=== PATIENT | female | born 1975 | race African-American/Black ===

== ENCOUNTER 2022-01-20 17:12 | Emergency (ER) | payer MEDICAID ==
[~2022-01-20] VITALS: Ht 172.7 cm; Wt 74.8 kg
[2022-01-20] MEDS ORDERED: IBUP-1955 PO (18:18)
[2022-01-20 18:40] VITALS: BP 115/69
--- NOTE | 2022-01-20 18:40 | NUR ---
Patient discharged to home in stable condition. Written and verbal after care instructions given. Patient verbalizes understanding of instructions. Stressed follow up or return to ER for worsening s/s.
== END 2022-01-20 18:41 | disposition home or self-care (01) ==
LOC: ER 17:23
DX: S89.91XA Unspecified injury of right lower leg, initial encounter (principal); W18.40XA Slipping, tripping and stumbling without falling, unspecified, initial encounter; Y93.23 Activity, snow (alpine) (downhill) skiing, snowboarding, sledding, tobogganing and snow tubing; Y92.838 Other recreation area as the place of occurrence of the external cause; Z88.0 Allergy status to penicillin
CPT/HCPCS: A4663

== ENCOUNTER 2024-03-04 16:38 | Emergency (ER) | payer MEDICAID, MEDICARE ==
[~2024-03-04] VITALS: Ht 167.6 cm; Wt 72.6 kg
[~2024-03-04 16:38] MED LIST: IBUP-1955 PO
[2024-03-04] MEDS: AZITHROMYCIN 250 MG TABLET PO ONE (17:15)
[2024-03-04] MEDS: CEFTRIAXONE 1 G in IV DEXTROSE 5% 50 ML IV ONE (17:15)
[2024-03-04] MEDS: IV NORMAL SALINE 1000 ML BAG IV ONE (17:38)
[2024-03-04] MEDS ORDERED: DEXAMETHASONE SOD PHOSPHATE 10 MG INJ ONE (17:39)
[2024-03-04] MEDS: DEXAMETHASONE SOD PHOSPHATE 4 MG INJ IV ONE (17:46)
[2024-03-04 17:51] LABS: BASOPHILS # (AUTO) 0.1 K/UL (0.0-0.2); BASOPHILS % (AUTO) 0.6 % (0.0-2.0); EOSINOPHILS # (AUTO) 0.1 K/uL (0.0-0.7); EOSINOPHILS % (AUTO) 0.6 % (0.0-7.0); HEMATOCRIT 34.7 % (31.2-41.9); HEMOGLOBIN 11.3 g/dL (10.9-14.3); LYMPHOCYTES # (AUTO) 3.2 K/uL (0.8-4.8); LYMPHOCYTES % (AUTO) 24.9 % (20.5-51.5); MEAN CORPUSCULAR HEMOGLOBIN 24.2 uug (24.7-32.8); MEAN CORPUSCULAR HGB CONC 33 g/dL (32.3-35.6); MEAN CORPUSCULAR VOLUME 74.2 fL (75.5-95.3); MONOCYTES # (AUTO) 1.1 K/uL (0.1-1.30); MONOCYTES % (AUTO) 8.5 % (0.0-11.0); NEUTROPHILS # (AUTO) 8.3 K/uL (1.8-8.9); NEUTROPHILS % (AUTO) 65.4 % (38.5-71.5); PLATELET COUNT (AUTO) 722 K/uL (179-408); RED BLOOD CELL COUNT(AUTO) 4.67 MIL/uL (3.63-4.92); WHITE BLOOD COUNT (AUTO) 12.7 K/uL (3.8-11.8)
[2024-03-04 17:55] LABS: DIFFERENTIAL COMMENT 1
[2024-03-04] MEDS ORDERED: CEFTRIAXONE /D5W 50ML IVPB **ER PYXIS IV ONE (18:15)
[2024-03-04] MEDS ORDERED: AZITHROMYCIN 250 MG TABLET ONE (18:15)
[2024-03-04 18:20] LABS: ALANINE AMINOTRANSFERASE 21 U/L (14-59); ALBUMIN 3.3 g/dL (3.4-5.0); ALKALINE PHOSPHATASE 82 U/L (50-136); ASPARTATE AMINOTRANSFERASE 26 U/L (15-37); BILIRUBIN,DIRECT < 0.1 mg/dL (0.0-0.2); BILIRUBIN,TOTAL 0.4 mg/dL (0.2-1.0); CALCIUM 9.3 mg/dL (8.5-10.1); CARBON DIOXIDE 26 mmol/L (21-32); CHLORIDE 100 mmol/L (98-107); CREATININE 0.9 mg/dL (0.6-1.3); GLUCOSE 91 mg/dL (74-106); NT-PRO BNP 57 pg/mL (0-125); POTASSIUM 4.7 mmol/L (3.5-5.1); SODIUM SERUM 140 mmol/L (136-145); TOTAL PROTEIN, SERUM 8.7 g/dL (6.4-8.2); UREA NITROGEN, BLOOD 11 mg/dL (7-18)
[2024-03-04 18:47] LABS: NEUTROPHILS % (MANUAL) 0 % (42-75)
[2024-03-04 19:37] LABS: *BILIRUBIN,URIN NEGATIVE (NEGATIVE); *CLARITY,URINE CLEAR (CLEAR); *COLOR,URINE YELLOW (YELLOW); *KETONES,URINE TRACE (NEGATIVE); *PROTEIN,URINE 1+ (NEGATIVE); *URINE HCG, QUAL NEGATIVE (NEGATIVE); *UROBILINOGEN,URINE 0.2 E.U./dl (NORMAL); LEUKOCYTE ESTERASE ,URINE 1+ (NEGATIVE); NITRITE, URINE POSITIVE (NEGATIVE); PH,URINE 5.5 (5.0-8.0); UGLUCOSE NEGATIVE (NEGATIVE)
[2024-03-04 19:38] LABS: *BLOOD, URINE TRACE (NEGATIVE)
[2024-03-04 20:40] LABS: BACTERIA,URINE MODERATE /HPF (NONE SEEN); MUCUS,URINE MODERATE /LPF (0-FEW); RBC,URINE 0-3 /HPF (0-3); SQUAMOUS EPITHELIAL CELL,UR MODERATE /HPF (NONE SEEN)
[2024-03-04] MEDS ORDERED: NITR-104 PO (21:02)
[2024-03-04] MEDS ORDERED: DOXY-326 PO (21:02)
[2024-03-04 21:15] VITALS: BP 115/68; TEMP 98.5; O2SAT 98
== END 2024-03-04 21:15 | disposition home or self-care (01) ==
LOC: ER 16:57
DX: N39.0 Urinary tract infection, site not specified (principal); J01.90 Acute sinusitis, unspecified; J00 Acute nasopharyngitis [common cold]; M79.10 Myalgia, unspecified site; R06.00 Dyspnea, unspecified; R07.9 Chest pain, unspecified; R10.2 Pelvic and perineal pain; R53.81 Other malaise; Z79.1 Long term (current) use of non-steroidal anti-inflammatories (NSAID); Z88.0 Allergy status to penicillin; Z60.2 Problems related to living alone; Z20.822 Contact with and (suspected) exposure to COVID-19
CPT/HCPCS: 99285; 96365; 71045; 96375; 87426; 87804; 80076; 80048; 81001; 84703; 83880; 85025; 84145; 85730; 87040 ×2; 84484; 84702; 36415; 93005; 83605; 85007; J0696; J1100; J7040; 70030-TC; A4606; A4663; Q0144

== ENCOUNTER 2024-08-28 00:50 | Emergency (ER) | payer MEDICARE ==
[~2024-08-28] VITALS: Ht 167.6 cm; Wt 77.1 kg
[~2024-08-28 00:50] MED LIST changes: +DOXY-326 PO; +NITR-104 PO
[2024-08-28] MEDS ORDERED: KETOROLAC TROMETHAMINE 30 MG INJ ONE (01:35)
[2024-08-28] MEDS: KETOROLAC TROMETHAMINE 30 MG INJ IM ONE (01:39)
[2024-08-28] MEDS ORDERED: CYCL5TAB PO (02:42)
[2024-08-28] MEDS ORDERED: NAPR-1009 PO (02:42)
[2024-08-28 03:04] VITALS: BP 110/70; O2SAT 97
== END 2024-08-28 03:06 | disposition home or self-care (01) ==
LOC: ER 01:02
DX: S63.681A Other sprain of right thumb, initial encounter (principal); S29.012A Strain of muscle and tendon of back wall of thorax, initial encounter; R07.89 Other chest pain; Z60.2 Problems related to living alone; Z79.1 Long term (current) use of non-steroidal anti-inflammatories (NSAID); Z88.0 Allergy status to penicillin; V43.52XA Car driver injured in collision with other type car in traffic accident, initial encounter; Y93.89 Activity, other specified; Y92.89 Other specified places as the place of occurrence of the external cause; Y99.8 Other external cause status
CPT/HCPCS: 99284; 71046; 73120; 96372; J1885; A4606; A4663